=== PATIENT | male | born 1965 | race Caucasian/White ===

== ENCOUNTER 2016-09-22 05:33 | Inpatient (IN) | payer OTHER ==
[2016-09-22] VITALS (9 sets, daily range): BP systolic 127–173; BP diastolic 54–84
[~2016-09-22] VITALS: Ht 172.7 cm; Wt 126.5 kg
--- NOTE | ~2016-09-22 | HC ---
[facility] [place] [address] CONSULTATION Name: LENNY WATERS Room #: 533-P [facility] IN M.R.#: [id number] Admission: 09/22/16 Attend Phys: Enrike Dozier MD Discharge: 09/26/16 Date of : 63 Report #: [id number] THIS REPORT FOR: //name// CC: Megan Marylou Dozier DATE OF SERVICE: 09/23/2016 HISTORY OF PRESENT ILLNESS: The patient is a 50-year-old white male who was admitted with a history of insulin-dependent diabetes mellitus, chronic osteomyelitis of the right lower extremity, underwent prolonged IV antibiotics. He has now been admitted to [facility] and underwent a right below knee amputation on 09/22/2016. He has a history of uncontrolled diabetes mellitus. PAST MEDICAL HISTORY: Includes alcohol and drug usage, he has been sober since being in the LT[facility]; history of hypertension, polysubstance abuse, MRSA of the right lower extremity; CHF, controlled; GERD, oxygen at 2-1/2 liters since April,. HABITS: Drug usage including marijuana, cocaine, methamphetamine. He is a former tobacco user, 1-2 packs per day for 20 years, quit greater than a year ago, past daily usage of alcohol. MEDICATIONS: Please see the full medication listing. SOCIAL HISTORY: He lives in a house by himself, 2 steps in. His mother lives a couple of blocks away and his father lives approximately 80 miles away. There is an involved sister. REVIEW OF SYSTEMS: He did not offer any current complaints of chest pain, shortness of breath or abdominal discomfort. He notes he has been sleeping very well. He did not like the diet, but has talked with the dietitian. He does have some numbness of his left lower extremity and does note a history of neuropathy. No other focal extremity pain complaints. Did not offer any complaints of headache or bowel or bladder changes. PHYSICAL EXAMINATION: GENERAL: He is a 50-year-old overweight white male in no obvious distress. VITAL SIGNS: Last recorded temperature is 97, respirations 18, blood pressure 184/75. HEENT: Facies appeared to be symmetric. NEUROLOGIC: He has functional range of motion of both upper extremities with strength grade 4- to 4/5. He has nasal prong O2 in place. He is of stocky build and has an abdominal pannus. His lower extremities; left lower extremity, there is no focal calf swelling. He has decreased sensation in the left large [facility] [address] [place] [address] CONSULTATION Name: LENNY WATERS Room #: 533-P [facility] IN [facility].#: [id number] Admission: 09/22/16 Attend Phys: Enrike Dozier MD Discharge: 09/26/16 Date of : 63 Report #: [id number] toe to proprioception with some decrease in a stocking distribution. Strength is a grade 4-/5. Right lower extremity reveals the right below knee amputation. He has a stump protector in place. He was mod assist with bed mobility, sit to stand was max assist. ASSESSMENT: A 50-year-old white male with the following problem list: 1. Right below knee amputation 09/22/2016. 2. Insulin-dependent diabetes mellitus, uncontrolled. 3. Hypertension, which is currently controlled. 4. Polysubstance abuse. 5. Right ankle chronic osteomyelitis for which he went the below knee amputation. PLAN: We will need to check on acute hospital days as I know he was at [facility] at least 6 weeks. Therapies will be working with him. We will need to see about meeting criteria, but would hope that he could come over for an acute in-hospital inpatient rehabilitation stay once medically ready and if he does have the acute medical days for an inpatient rehabilitation stay. We will be glad to follow along with you. <ELECTRONICALLY SIGNED> By: Yusuf Dove MD 09/27/16 1826 1612 2128 Yusuf Dove MD /nt
--- NOTE | ~2016-09-22 | S ---
[facility] [place] [address] SURGICAL PATH RPT PROCEDURE Name: LENNY WATERS Room #: 533-P DIS IN M.R.#: [id number] Admission: 09/22/16 Date of : 63 Discharge: 09/26/16 Report #: [id number] Path Case #: [id number] PATHOLOGY REPORT COLLECTION DATE: 09/22/2016 RECEIVED DATE: 09/22/2016 SUBMITTING PHYS: Dr. Enrike Dozier OTHER PHYS: Dr. Morgan iHckman SPECIMEN(S) RECEIVED: A.Right lower leg * * * * * * * * * * * * FINAL DIAGNOSIS: Leg, right lower leg, amputation: - Ulceration along with gangrenous necrosis extending into underlying subcutaneous tissue. - Vessels showing mild to moderate muscular hypertrophy. - Skin margin viable. - Tibia with metallic hardware in place. - Bone surgical margin grossly viable and unremarkable. (IUV:mgr; d/t: 09/27/2016) PATHOLOGIST: Anita Medina M.D. REPORT ELECTRONICALLY SIGNED BY: Anita Medina M.D. DATE/TIME: 09/27/2016 15:35 * * * * * * * * * * * * GROSS PATHOLOGY: The specimen is received fresh, labeled "Abrahamright lower leg" is a right leg below the knee amputation with attached foot displaying all 5 digits. The leg measures 31.7 cm in length and ranges in diameter from 8.7 cm up to 9.9 cm. The attached foot measures 24.8 x 10.2 x 5.7 cm. The rey white skin has a scaly appearance predominantly on the anterior michele and shows a 8.5 x 4.5 cm ulceration located 6.2 cm from the soft tissue resection margin and 12.2 cm from the flat tibia and fibula resection margin. Sectioning through the specimen reveals focal fibrosis and edema adjacent to the ulceration. The vasculature reveals predominantly patent lumens and the bone has a rey-pink hard cut surface. Identified within the tibia is metallic surgical hardware. Section code: A1-neurovascular bundles, A2-perpendicular sections of anterior soft tissue resection margin closest to ulceration, A3-represents section of ulceration, A4-business process representative sections of tibia underlying ulceration submitted after decal. (DRDarrick; 09/26/2016) [address] [address] SURGICAL PATH RPT PROCEDURE Name: LENNY WATERS Room #: 533-P DIS IN M.R.#: [id number] Admission: 09/22/16 Date of : 63 Discharge: 09/26/16 Report #: [id number] Path Case #: [id number] CLINICAL HISTORY: Right leg osteomyelitis. INITIAL CPT CODE(S): A; 78663, 56604 Professional services performed by [facility] at [place] [address] [address], [place] [address] Technical services performed by [facility] at [address] [place] [address]., [address] [address]. [facility] [address] [address] PHONE: [phone] DIRECTOR: Juve Dacosta M.D. * * * END OF REPORT * * *
--- NOTE | ~2016-09-22 | HC ---
[facility] [place] [address] CONSULTATION Name: LENNY WATERS Room #: 533-P ADM IN M.R.#: [id number] Admission: 09/22/16 Attend Phys: Enrike Dozier MD Discharge: Date of : 63 Report #: [id number] THIS REPORT FOR: //name// CC: Megan Dozier INFECTIOUS DISEASES CONSULTATION REASON FOR CONSULTATION: Evaluate right ankle osteomyelitis. HISTORY OF PRESENT ILLNESS: The patient was a 50-year-old, known from his hospitalization at [facility] where he was sent in from an outside hospital for further wound care and management of a right ankle fracture which was extensive complication of a fracture with ORIF. He had infected hardware with methicillin-susceptible Staph aureus. I obtained orthopedic consultation. He had vascular interventional radiology consultation as well. It was deemed that the ankle was destroyed extensively with hardware involvement that reconstruction would not be feasible. Vascular workup revealed good blood flow to the lower extremity. He was taken for below-knee amputation today without intraoperative complications. It is noted that prior to his surgery, he was on nafcillin and developed fluid retention and then was switched to cefazolin, where he developed a rash and was then placed on vancomycin. He does continue vancomycin at this time. PAST MEDICAL HISTORY: Unchanged from his history and physical. FAMILY HISTORY: Unchanged from his history and physical. SOCIAL HISTORY: Unchanged from his history and physical. ALLERGIES: SULFA, CEFAZOLIN, BEESTINGS and . MEDICATIONS: As noted on his JUN, including vancomycin. REVIEW OF SYSTEMS: No cardiopulmonary, GI or complaints. PHYSICAL EXAMINATION: VITAL SIGNS: Afebrile, hemodynamically stable. SKIN: Right BKA was dressed. CHEST: Clear. HEART: Regular. ABDOMEN: Soft. The patient was on CPAP mask. LABORATORY DATA: Hemoglobin 8.6, white count 9.3 and platelet count 332,000. Creatinine 1.0. IMPRESSION AND PLAN: Methicillin-susceptible Staph aureus chronic osteomyelitis [address] [address] CONSULTATION Name: LENNY WATERS Room #: 533-P ADM IN M.R.#: [id number] Admission: 09/22/16 Attend Phys: Enrike Dozier MD Discharge: Date of : 63 Report #: [id number] of his right ankle following extensive reconstructive surgery. Would recommend continuing vancomycin, anticipate 3 days postop period. We will then re-evaluate his stump prior to discontinuation of his antibiotics. <ELECTRONICALLY SIGNED> By: Malcolm Rodriguez MD 09/26/16 1006 1127 1320 Malcolm Rodriguez MD /nt
--- NOTE | ~2016-09-22 | EKG ---
[place] [address] [employer] [place] [address] ELECTROCARDIOGRAM REPORT Name: LENNY WATERS Room #: 533-P ADM IN M.R.#: [id number] Admission: 09/22/16 Attend Phys: Enrike Dozier MD Discharge: Date of : 63 Report #: [id number] THIS REPORT FOR: //name// [facility] Test Date: 2016-09-22 Test Time: 06:37:24 Pat Name: LENNY WATERS Department: Room: 533 Gender: M Healthcare Interpreter: GRICEL : 1965 Requested By: Nikki Garcia Order Number: [id number] MD: Loi Garay Measurements Intervals [place] Rate: 89 P: 46 WI: 208 QRS: 45 QRSD: 87 T: 22 QT: 348 QTc: 424 Interpretive Statements Sinus rhythm Borderline prolonged WI interval Baseline wander in lead(s) II No previous ECG available for comparison Electronically Signed On 09-24-2016 11:54:32 CDT by Loi Garay [email or web address] <ELECTRONICALLY SIGNED> By: Loi Garya MD, [facility] 09/24/16 1154 0637 6 Loi Garay MD, FACC /EPI
--- NOTE | ~2016-09-22 | O ---
[facility] [place] [address] OPERATIVE REPORT Name: LENNY WATERS Room #: 533-P [facility] IN M.R.#: [id number] Admission: 09/22/16 Attend Phys: Enrike Dozier MD Discharge: Date of : 63 Report #: [id number] THIS REPORT FOR: //name// CC: Megan Dozier DATE OF SERVICE: 09/22/2016 PREOPERATIVE DIAGNOSIS: Right ankle chronic osteomyelitis with retained hardware. POSTOPERATIVE DIAGNOSIS: Right ankle chronic osteomyelitis with retained hardware. PROCEDURE: Right below knee amputation. SURGEON: Enrike Dozier M.D. CUTTER HOT KNIFE: Patito Cassidy PA-C. ANESTHESIA: LMA. TOURNIQUET TIME: 37 minutes. ESTIMATED BLOOD LOSS: 100 mL. COMPLICATIONS: None. SPECIMENS: Right foot and ankle were sent to pathology. CONDITION UPON LEAVING THE OPERATING ROOM: Stable. INDICATIONS FOR PROCEDURE: The patient is a 50-year-old gentleman who had a previous ORIF of his distal tibia, which has gone to develop chronic osteomyelitis with chronic septic tibiotalar joint. He has had a draining wound with hardware in his distal third tibia. He has been having wound care as well as IV antibiotics and after discussion with him given his overall diabetic status and chronicity of his problem, he elected for below knee amputation. DESCRIPTION OF PROCEDURE: Risks, benefits, alternatives, complications were discussed in detail with the patient including but not limited to risk of anesthesia, risk of damage to nerves, arteries, blood vessels, risk for infection, bleeding, risk for wound problems and need for reoperation. Informed consent was obtained from the patient. The right leg was appropriately marked in the preoperative holding area. IV Ancef was given for preoperative antibiotics. He was brought to the operating room and placed in supine position [address] [address] OPERATIVE REPORT Name: LENNY WATERS Room #: 533-P ADM IN M.R.#: [id number] Admission: 09/22/16 Attend Phys: Enrike Dozier MD Discharge: Date of : 63 Report #: [id number] on operating room table. LMA anesthesia was induced without complication. Tourniquet was placed on the right thigh. Right lower extremity was prepped and draped in normal sterile fashion. Timeout was performed properly identifying the patient, procedure as well as the instrumentation. All in the operating room were in agreement. Right lower extremity was elevated, tourniquet was inflated. Tourniquet time was 37 minutes. A posterior flap based incision was then marked on the skin and incision was made with 10 blade through the skin and dissection was taken down through the anterior muscular compartment with a Bovie cautery. The tibia was skeletonized and a Suarez elevator was used to elevate periosteum superiorly and an oscillating saw was used to make a transverse tibial cut and the anterior edge was beveled with saw. The fibula was cut 1 cm proximal to the tibial cut and further dissection was taken around both medially and laterally and the deep posterior compartment was dissected subperiosteally off the tibia and the fibula and the lower extremity was amputated, this was sent to pathology. The vasculature was identified during the dissection and tied off and cut to minimize bleeding once the tourniquet was deflated. Wound was thoroughly irrigated with normal saline. Tourniquet was deflated and hemostasis was obtained with Bovie cautery. There was one additional vessel, which is likely the posterior tibial artery that needed to be tied again. The tibial nerve was identified and dissected out and cut sharply with a 10 blade ____ formation. The deep posterior compartment musculature was excised with Bovie cautery and the gastroc soleus musculature was ____ anteriorly and closed to the anterior periosteum and fascia with 0 Vicryl. Deep drain was placed. The skin was closed with 2-0 Vicryl and skin staple. Soft dressing of Adaptic, 4 x 4, ABD, Kerlix and Dwaine wrap were applied. The patient tolerated this procedure well and went to the recovery room under the care of anesthesia postoperatively. <ELECTRONICALLY SIGNED> By: Enrike Dozeir MD 09/25/16 0844 1001 1203 Enrike Dozier MD /nt
[~2016-09-22 05:33] MED LIST: ACETAMINOPHEN325 M3 PO; ASPIRIN325 PO; BAZA CR.1 E1 TP; BENADRYL25 MG PO; BISACODYL SUPP10 MG RECTAL; BUSPIRONE HCL10 MG PO; CARDIZEM CD240 MG PO; COLACE100 MG PO; COZAAR 50 MG TA50 M2 PO; DIPHENHYDRAM50 MG/M2 IV PUSH; ENOXAPARIN40 MG/0.1 SUBQ; FUROSEMIDE40 MG/4 ML PO; GLUCAGON EMERGEN1 MG IJ; HYDROCORTISONE30 G9 RECTAL; JUVEN PACKET1 EACH PO; LEVEMIR FL100 UNIT/2 SUBQ; LIPITOR40 MG PO; LIQUITUSS200 MG/5 M PO; LOPRESSOR100 M1 PO; LOPRESSOR50 PO; MAG-AL PLUS SUS30 ML PO; MILK OF MA2400 MG/10 PO; MIRALAX17 GM PO; NORCO 5-325 TA1 EACH PO; NOVOLOG100 UNIT/1 SUBQ; ONDANSETRON HCL4 M2 IV; PROBIOTIC1 EAC1 PO; PROMETHAZINE12.5 M1 PO; PROTONIX40 M1 PO; TEMAZEPAM30 MG PO; TESSALON PERLE100 MG PO; TRINATE TABLET1 TAB PO; TUMS PO; VANCO-0.9%750 MG/250 IV
[2016-09-22 06:55] LABS: HEMOGLOBIN 8.6 gm/dL (14.0-18.0); MCH 31.9 pg (26.0-34.0); MCHC 34.3 g/dL (28.0-37.0); RBC 2.69 mil/uL (4.50-6.00); RDW 14.7 % (10.5-14.5); WBC 9.3 thou/uL (4.0-11.0)
[2016-09-22 07:10] LABS: CALCIUM 9.6 mg/dL (8.5-10.1); POTASSIUM 4.4 mmol/L (3.5-5.1)
[2016-09-23 03:17] VITALS: BP 172/71
[2016-09-23 04:09] LABS: GLYCOHEMOGLOBIN (HGB A1C) 6.5 % (4.8-5.6)
[2016-09-23 06:06] LABS: ABSOLUTE NEUTROPHILS 6.7 thou/uL (1.4-8.2); BASOPHILS 0.6 % (0.0-2.0); EOSINOPHILS 8.4 % (0.0-3.0); HEMOGLOBIN 7.5 gm/dL (14.0-18.0); LYMPHOCYTES 11.3 % (24.0-44.0); MCH 31.7 pg (26.0-34.0); MCHC 33.9 g/dL (28.0-37.0); MCV 93.5 fL (80.0-100.0); MONOCYTES 9.3 % (1.0-8.0); PLATELET COUNT 305 thou/uL (150-400); POLYS 70.4 % (36.0-66.0); RBC 2.35 mil/uL (4.50-6.00); RDW 14.3 % (10.5-14.5); WBC 9.6 thou/uL (4.0-11.0)
[2016-09-23 06:08] LABS: MANUAL DIFF NO
[2016-09-23 06:11] LABS: CALCIUM 8.9 mg/dL (8.5-10.1); POTASSIUM 4.7 mmol/L (3.5-5.1)
[2016-09-23 08:55] VITALS: BP 184/75
[2016-09-23 16:00] VITALS: BP 117/62
[2016-09-23 20:00] VITALS: BP 113/53
[2016-09-24 04:00] VITALS: BP 131/56
[2016-09-24 07:22] VITALS: BP 110/53
[2016-09-24 13:57] VITALS: BP 110/53
[2016-09-24 15:44] VITALS: BP 132/58
[2016-09-24 19:10] VITALS: BP 112/64
[2016-09-25 06:34] LABS: HEMATOCRIT 22.8 % (42.0-52.0); HEMOGLOBIN 7.9 gm/dL (14.0-18.0); MCH 31.9 pg (26.0-34.0); MCHC 34.5 g/dL (28.0-37.0); MCV 92.4 fL (80.0-100.0); OBSERVED RETIC COUNT 2.59 % (0.6-2.6); PLATELET COUNT 336 thou/uL (150-400); RBC 2.47 mil/uL (4.50-6.00); RDW 14.2 % (10.5-14.5); WBC 7.1 thou/uL (4.0-11.0)
[2016-09-25 06:37] LABS: MANUAL DIFF YES
[2016-09-25 06:46] LABS: CALCIUM 9.3 mg/dL (8.5-10.1); CREATININE 0.9 mg/dL (0.7-1.3); MAGNESIUM 1.9 mg/dL (1.8-2.4); POTASSIUM 4.1 mmol/L (3.5-5.1)
[2016-09-25 07:05] VITALS: BP 155/78
[2016-09-25 08:00] VITALS: BP 155/78
[2016-09-25 10:04] LABS: ABSOLUTE NEUTROPHILS 3.8 thou/uL (1.4-8.2); ANISOCYTOSIS SLIGHT; TOTAL CELL COUNT 100
[2016-09-25 15:15] VITALS: BP 134/67
[2016-09-25 19:21] VITALS: BP 139/78
[2016-09-26 03:17] VITALS: BP 136/78
[2016-09-26 03:50] LABS: ABSOLUTE NEUTROPHILS 4.7 thou/uL (1.4-8.2); BASOPHILS 0.7 % (0.0-2.0); HEMATOCRIT 20.7 % (42.0-52.0); HEMOGLOBIN 7.1 gm/dL (14.0-18.0); MCH 31.7 pg (26.0-34.0); MCHC 34.2 g/dL (28.0-37.0); MCV 92.6 fL (80.0-100.0); MONOCYTES 9.8 % (1.0-8.0); PLATELET COUNT 352 thou/uL (150-400); POLYS 57.5 % (36.0-66.0); RBC 2.24 mil/uL (4.50-6.00); RDW 13.7 % (10.5-14.5); WBC 8.1 thou/uL (4.0-11.0)
[2016-09-26 03:53] LABS: MANUAL DIFF NO
[2016-09-26 04:12] LABS: CALCIUM 8.8 mg/dL (8.5-10.1); POTASSIUM 3.8 mmol/L (3.5-5.1)
[2016-09-26 07:10] VITALS: BP 145/77
== END 2016-09-26 18:40 | DRG 617 ==
LOC: TBA 05:33 → 5S 05:33
PROVIDERS: Family Medicine; Internal Medicine Geriatric Medicine; Internal Medicine Infectious Disease; Nurse Practitioner Family; Orthopaedic Surgery; Student in an Organized Health Care Education/Training Program
PROC: 0Y6F0ZZ Detachment at Right Knee Region, Open Approach (ICD-10-PCS; principal; 2016-09-22)
PROC: 5A09357 Assistance with Respiratory Ventilation, Less than 24 Consecutive Hours, Continuous Positive Airway Pressure (ICD-10-PCS; 2016-09-22)
DX: E11.69 Type 2 diabetes mellitus with other specified complication (principal); M86.8X7 Other osteomyelitis, ankle and foot; B95.61 Methicillin susceptible Staphylococcus aureus infection as the cause of diseases classified elsewhere; I11.0 Hypertensive heart disease with heart failure; I50.9 Heart failure, unspecified; K21.9 Gastro-esophageal reflux disease without esophagitis; F19.10 Other psychoactive substance abuse, uncomplicated; F12.90 Cannabis use, unspecified, uncomplicated; F14.90 Cocaine use, unspecified, uncomplicated; F11.90 Opioid use, unspecified, uncomplicated; F41.8 Other specified anxiety disorders; E78.00 Pure hypercholesterolemia, unspecified; D64.9 Anemia, unspecified; Z88.2 Allergy status to sulfonamides; Z88.1 Allergy status to other antibiotic agents; Z79.4 Long term (current) use of insulin; Z87.891 Personal history of nicotine dependence; Z91.19 Patient's noncompliance with other medical treatment and regimen; Z79.82 Long term (current) use of aspirin; Z79.899 Other long term (current) drug therapy
CPT/HCPCS: 10785; 50010; 50101; 50386; 51412; 53000; 56524; 56528; 57091; 62110; 62900; 70005

== ENCOUNTER 2016-09-26 16:53 | Inpatient (IN) | payer OTHER ==
[~2016-09-26] VITALS: Ht 165.1 cm; Wt 113.9 kg
[2016-09-26 18:40] VITALS: BP 121/64
[2016-09-27 05:50] VITALS: BP 138/71
[2016-09-27 16:00] VITALS: BP 112/70
[2016-09-27 18:39] LABS: FOLIC ACID 15.9 ng/mL (8.6-58.9)
[2016-09-28 05:35] VITALS: BP 129/69
[2016-09-28 05:43] LABS: ABSOLUTE NEUTROPHILS 4.4 thou/uL (1.4-8.2); BASOPHILS 0.8 % (0.0-2.0); EOSINOPHILS 10.7 % (0.0-3.0); HEMATOCRIT 22.3 % (42.0-52.0); HEMOGLOBIN 7.6 gm/dL (14.0-18.0); LYMPHOCYTES 23.7 % (24.0-44.0); MCH 31.5 pg (26.0-34.0); MCHC 34.3 g/dL (28.0-37.0); MONOCYTES 9.6 % (1.0-8.0); PLATELET COUNT 419 thou/uL (150-400); POLYS 55.2 % (36.0-66.0); RBC 2.43 mil/uL (4.50-6.00)
[2016-09-28 05:45] LABS: MANUAL DIFF NO
[2016-09-28 05:57] LABS: CALCIUM 9.2 mg/dL (8.5-10.1); TOTAL BILIRUBIN 0.3 mg/dL (<0.1-1.0)
[2016-09-28 15:16] VITALS: BP 116/59
[2016-09-29 06:51] VITALS: BP 149/83
[2016-09-29 15:27] VITALS: BP 110/54
[2016-09-30 06:18] VITALS: BP 144/78
[2016-09-30 08:00] VITALS: BP 149/78
[2016-09-30 17:30] VITALS: BP 121/64
[2016-10-01 05:36] VITALS: BP 116/67
[2016-10-01 08:30] VITALS: BP 122/61
[2016-10-02 05:36] VITALS: BP 111/43
[2016-10-02 17:10] VITALS: BP 124/55
[2016-10-02 21:17] VITALS: BP 140/58
[2016-10-03 05:44] VITALS: BP 121/58
[2016-10-03 08:45] VITALS: BP 133/72
[2016-10-03 09:00] LABS: ABSOLUTE NEUTROPHILS 4.5 thou/uL (1.4-8.2); EOSINOPHILS 10.8 % (0.0-3.0); HEMATOCRIT 25.7 % (42.0-52.0); HEMOGLOBIN 8.8 gm/dL (14.0-18.0); LYMPHOCYTES 22.6 % (24.0-44.0); MCH 31.8 pg (26.0-34.0); MCHC 34.3 g/dL (28.0-37.0); MCV 92.8 fL (80.0-100.0); MONOCYTES 9.4 % (1.0-8.0); PLATELET COUNT 427 thou/uL (150-400); POLYS 56.2 % (36.0-66.0); RBC 2.77 mil/uL (4.50-6.00); RDW 14.3 % (10.5-14.5); WBC 7.9 thou/uL (4.0-11.0)
[2016-10-03 09:03] LABS: MANUAL DIFF NO
[2016-10-03 09:11] LABS: CALCIUM 9.4 mg/dL (8.5-10.1); POTASSIUM 4.6 mmol/L (3.5-5.1)
[2016-10-03 15:33] VITALS: BP 120/57
[2016-10-04 06:00] VITALS: BP 122/60
[2016-10-04 15:38] VITALS: BP 113/62
[2016-10-04 20:19] VITALS: BP 182/84
[2016-10-05 05:31] VITALS: BP 147/74
[2016-10-05 10:17] VITALS: BP 114/62
[2016-10-05 15:27] VITALS: BP 103/53
[2016-10-05 20:45] VITALS: BP 159/80
[2016-10-06 03:53] VITALS: BP 147/76
[2016-10-06 07:55] VITALS: BP 140/50
[2016-10-06 17:16] VITALS: BP 144/71
[2016-10-07 05:45] VITALS: BP 104/55
[2016-10-07 08:30] VITALS: BP 124/76
[2016-10-07 15:30] VITALS: BP 111/70
[2016-10-08 05:05] VITALS: BP 129/61
[2016-10-08 08:40] VITALS: BP 131/72
[2016-10-08 16:06] VITALS: BP 102/51
[2016-10-09 06:28] VITALS: BP 113/63
[2016-10-09 15:30] VITALS: BP 139/64
[2016-10-09 21:52] VITALS: BP 135/60
[2016-10-10 06:34] VITALS: BP 118/71
[2016-10-10 16:46] VITALS: BP 104/66
[2016-10-10 20:33] VITALS: BP 133/70
[2016-10-11 04:30] VITALS: BP 108/60
[2016-10-11 07:15] LABS: ABSOLUTE NEUTROPHILS 3.2 thou/uL (1.4-8.2); BASOPHILS 0.8 % (0.0-2.0); EOSINOPHILS 13.2 % (0.0-3.0); HEMATOCRIT 29.2 % (42.0-52.0); HEMOGLOBIN 9.9 gm/dL (14.0-18.0); MCH 31.8 pg (26.0-34.0); MCHC 33.9 g/dL (28.0-37.0); MCV 93.9 fL (80.0-100.0); MONOCYTES 10.9 % (1.0-8.0); PLATELET COUNT 332 thou/uL (150-400); POLYS 49.1 % (36.0-66.0); RBC 3.11 mil/uL (4.50-6.00); RDW 15.3 % (10.5-14.5); WBC 6.6 thou/uL (4.0-11.0)
[2016-10-11 07:24] LABS: MANUAL DIFF NO
[2016-10-11 08:00] VITALS: BP 109/70
[2016-10-11 08:41] LABS: CALCIUM 9.9 mg/dL (8.5-10.1); CREATININE 1.1 mg/dL (0.7-1.3); POTASSIUM 4.5 mmol/L (3.5-5.1)
[2016-10-11 16:04] VITALS: BP 138/86
[2016-10-11 20:52] VITALS: BP 152/76
[2016-10-12 08:00] VITALS: BP 132/74
[2016-10-12 15:30] VITALS: BP 103/61
[2016-10-12 16:34] VITALS: BP 132/74
[2016-10-12 20:55] VITALS: BP 117/68
[2016-10-13 05:25] VITALS: BP 119/59
[2016-10-13] MEDS ORDERED: [UNRECOGNIZED DRUG - SUPPLY] ×2 (09:10→09:21)
[2016-10-13] MEDS ORDERED: COZAAR 50 MG TA50 M2 PO (09:10)
[2016-10-13] MEDS ORDERED: CARDIZEM CD240 MG PO (09:10)
[2016-10-13] MEDS ORDERED: GLYBURIDE 5 MG T5 M1 PO (09:10)
[2016-10-13] MEDS ORDERED: ASPIRIN325 PO (09:10)
[2016-10-13] MEDS ORDERED: LOPRESSOR50 PO (09:10)
[2016-10-13] MEDS ORDERED: LOPRESSOR100 M1 PO (09:10)
[2016-10-13] MEDS ORDERED: FUROSEMIDE40 MG/4 ML PO (09:10)
[2016-10-13] MEDS ORDERED: LIPITOR40 MG PO (09:10)
[2016-10-13] MEDS ORDERED: HYDROCORTISONE30 G9 RECTAL (09:10)
[2016-10-13] MEDS ORDERED: BUSPIRONE HCL10 MG PO (09:10)
[2016-10-13] MEDS ORDERED: BAZA CR.1 E1 TP (09:10)
[2016-10-13] MEDS ORDERED: PROTONIX40 M1 PO (09:10)
[2016-10-13 11:32] VITALS: BP 132/74
[2016-10-13] MEDS ORDERED: MELATONIN5 M1 PO (13:11)
[2016-10-13] MEDS ORDERED: GLUCOPHAGE1000 MG PO (14:37)
== END 2016-10-13 16:24 | disposition home health service (06) | DRG 560 ==
PROVIDERS: Nurse Practitioner
PROC: 5A09357 Assistance with Respiratory Ventilation, Less than 24 Consecutive Hours, Continuous Positive Airway Pressure (ICD-10-PCS; principal; 2016-10-11)
DX: Z47.81 Encounter for orthopedic aftercare following surgical amputation (principal); M86.9 Osteomyelitis, unspecified; Z68.41 Body mass index [BMI] 40.0-44.9, adult; D64.9 Anemia, unspecified; I50.9 Heart failure, unspecified; K21.9 Gastro-esophageal reflux disease without esophagitis; F15.10 Other stimulant abuse, uncomplicated; E66.9 Obesity, unspecified; I11.0 Hypertensive heart disease with heart failure; R53.81 Other malaise; G47.00 Insomnia, unspecified; E11.69 Type 2 diabetes mellitus with other specified complication; E55.9 Vitamin D deficiency, unspecified; Z88.8 Allergy status to other drugs, medicaments and biological substances; Z89.511 Acquired absence of right leg below knee; Z79.4 Long term (current) use of insulin; Z88.2 Allergy status to sulfonamides; Z91.030 Bee allergy status
CPT/HCPCS: 10112